=== PATIENT | male | born 1990 | race Caucasian/White ===

== ENCOUNTER 2019-01-24 13:31 | Emergency (ER) | payer SELFPAY ==
[~2019-01-24] VITALS: Ht 180.3 cm; Wt 102.8 kg
[2019-01-24 13:49] VITALS: BP 133/91; Ht 180.3 cm; Wt 102.8 kg
[2019-01-24] MEDS ORDERED: VOLTAREN75 MG PO (16:54)
== END 2019-01-24 17:30 | disposition home or self-care (01) ==
LOC: D.ER 13:31
DX: S46.002A Unspecified injury of muscle(s) and tendon(s) of the rotator cuff of left shoulder, initial encounter (principal); X58.XXXA Exposure to other specified factors, initial encounter

== ENCOUNTER 2019-03-12 09:00 | Day surgery (SDC) | payer MEDICAID ==
[~2019-03-12] VITALS: Ht 180.3 cm; Wt 102.5 kg
[~2019-03-12 09:00] MED LIST: HYDROCODON-ACE1 EAC2 PO; LIPITOR10 MG PO; PSEUDO-GEST60 MG PO; VOLTAREN75 MG PO
[2019-03-12] MEDS ORDERED: ZYRTEC10 MG PO (09:15)
[2019-03-12 09:16] VITALS: BP 144/94; Ht 180.3 cm; Wt 102.5 kg
--- NOTE | 2019-03-12 11:49 | NUR ---
1130-updated on delay to surgery. additional valium offerred and patient declined. 1150-wants to go out to smoke, patient advised it is not allowed on hospital property and not a good idea before anesthesia.
[2019-03-12] MEDS ORDERED: HYDROCODON-ACE1 EA10 PO (13:43)
--- NOTE | 2019-03-12 14:56 | NUR ---
1450 [place] DIET SERVED. HOB ELEVATED.
--- NOTE | 2019-03-15 11:49 | OP ---
PATIENT NAME: SHAKEEL SILVEIRA MEDICAL RECORD: [id number] LOCATION:[facility] ADMISSION DATE: SURGEON: VENANCIO SHIPMAN MD DATE OF OPERATION: 03/12/2019 PREOPERATIVE DIAGNOSIS: Superior labral anterior posterior lesion, left shoulder. POSTOPERATIVE DIAGNOSIS: Superior labral anterior posterior lesion, left shoulder. PROCEDURE: Arthroscopic SLAP repair of the left shoulder. SURGEON: Venancio Shipman MD FLAT LOCKER: Chacorta Arzola APN INTRAOPERATIVE COMPLICATIONS: None. SUMMARY OF PATHOLOGIC FINDINGS: The patient had a bicipital labral complex tear consistent with the patient's preoperative MRI as well as the patient's symptoms. OPERATIVE SUMMARY IN DETAIL: After obtaining the appropriate preoperative orthopedic surgery consent as well as anesthetic consultation, evaluation, and clearance, the patient was brought to the operating room and placed on the operating table in supine position. After general laryngeal mask was administered, the patient was placed in the right lateral decubitus position. All pressures points were well padded to include down leg peroneal pad as well as axillary roll. The patient was held firmly to the operating table using the vacuum pack suction system. Left upper extremity and shoulder were then prepped and draped in routine sterile fashion. The arm was held in the Arthrex traction boom at 30 degrees of forward flexion, 30 degrees of abduction, 10 pounds of traction. Arthroscopy was established in the glenohumeral joint from the posterior portal. Anterior portal was established in the anterior safe interval. A tertiary portal was established in the portal of Neviaser. The superior aspect of the glenoid was prepared for reapproximation using both the arthroscopic rasp as well as resector At this point, 2 labral anchors were placed with labral tape, one just anterior to the bicipital labral junction, one just posterior to the bicipital labral junction. This resulted in anatomic reattachment of the labrum from posterior to anterior. Intraoperative photographs were taken. A small amount of the biceps tendonitis was noted. It was of note that the subacromial space was relatively normal as this did appear to be a pure SLAP lesion. Having completed this, arthroscopy portals were closed in routine interrupted fashion using 4-0 Prolene by Chacorta Arzola. Sterile dressings were applied. The patient was awakened and taken to recovery room in stable condition. All final needle and sponge counts were correct. TRANSINT:[id number] Voice Confirmation ID: [id number] DOCUMENT ID: [id number] OPERATIVE REPORT [id number] SHAKEEL SILVEIRA MD, VENANCIO HARRIS at 1149 CC: [id number] DICTATION DATE: 03/13/19921 MANAGER MENTAL HEALTH: 03/13/[address] [facility] 03/12/19 [place] [id number]
== END 2019-03-12 15:40 | disposition home or self-care (01) ==
LOC: D.OPS 09:00 → D.PAN 12:00 → D.OPS 12:00
PROVIDERS: ATTEND Orthopaedic Surgery
DX: S43.432A Superior glenoid labrum lesion of left shoulder, initial encounter (principal); X58.XXXA Exposure to other specified factors, initial encounter

== ENCOUNTER → 2019-08-31 12:59 | Outpatient (CLI) | payer OTHER ==
[2019-03-12 09:16] VITALS: BMI 31.6
[~2019-08-31 12:59] MED LIST changes: +HYDROCODON-ACE1 EA10 PO; +ZYRTEC10 MG PO
== END | disposition home or self-care (01) ==
LOC: D.RAD 12:59 → D.MRI 15:00
PROVIDERS: ATTEND Clinical Nurse Specialist Family Health
DX: M25.512 Pain in left shoulder (principal)